=== PATIENT | female | born 2005 | race Hispanic/Latino ===

== ENCOUNTER 2024-11-24 12:04 | Emergency (ER) | payer SELFPAY ==
[~2024-11-24] VITALS: Ht 167.6 cm; Wt 90.3 kg
[2024-11-24 12:38] VITALS: PULSE 93; RESP 18; TEMP 97.2
[2024-11-24 13:16] LABS: BASOPHILS % 0.1 % (0.0-1.0); HEMATOCRIT 38.3 % (34.2-44.1); HEMOGLOBIN 13.5 g/dL (12.0-16.0); LYMPHOCYTES # (AUTO) 0.5 (1.0-3.2); LYMPHOCYTES % 5.3 % (18.0-39.1); MEAN CORPUSCULAR HEMOGLOBIN 31.8 pg (28-32); MEAN CORPUSCULAR HGB CONC 35.2 g/dL (31-35); MEAN CORPUSCULAR VOLUME 90.1 fL (81-99); MONOCYTES # (AUTO) 0.3 (0.2-0.8); MONOCYTES % 3.1 % (4.4-11.3); NEUTROPHILS # (AUTO) 7.7 (2.1-6.9); NEUTROPHILS % 91.1 % (38.7-80.0); PLATELET COUNT 206 x10e3/uL (140-360); RED BLOOD COUNT 4.25 x10e6/uL (3.6-5.1); RED CELL DISTRIBUTION WIDTH 11.7 % (11.7-14.4); WHITE BLOOD COUNT 8.46 x10e3/uL (4.8-10.8)
[2024-11-24 13:23] LABS: COLOR,URINE YELLOW (YELLOW)
[2024-11-24 13:24] LABS: BILIRUBIN,URINE NEGATIVE (NEGATIVE); CLARITY,URINE CLEAR (CLEAR); GLUCOSE, URINE NEGATIVE (NEGATIVE); KETONES,URINE NEGATIVE (NEGATIVE); LEUKOCYTE ESTERASE ,URINE TRACE (NEGATIVE); NITRITE,URINE NEGATIVE (NEGATIVE); PH,URINE 8.5 (5 - 7); PREGNANCY TEST, URINE NEGATIVE (NEGATIVE); PROTEIN,URINE DIPSTICK 1+ (NEGATIVE); URINE UROBILINOGEN 0.2 mg/dL (0.2 - 1)
[2024-11-24 13:33] LABS: BACTERIA,URINE MODERATE /HPF; RBC,URINE 0-5 /HPF (0-5)
[2024-11-24 13:34] LABS: EPITHELIAL CELLS,URINE MODERATE /LPF
[2024-11-24 13:36] LABS: ALBUMIN 3.7 g/dL (3.5-5.0); ALBUMIN/GLOBULIN RATIO 1.5 (0.8-2.0); ANION GAP 13.6 mmol/L (8-16); BILIRUBIN,TOTAL 0.6 mg/dL (0.2-1.2); CALCIUM 8.8 mg/dL (8.4-10.2); CREATININE, SERUM 0.74 mg/dL (0.57-1.11); POTASSIUM 3.6 mmol/L (3.5-5.1); TOTAL PROTEIN 6.2 g/dL (6.5-8.1)
[2024-11-24 13:54] LABS: AMPHETAMINES SCREEN,URINE NEGATIVE (NEGATIVE); BENZODIAZEPINES SCREEN,URINE NEGATIVE (NEGATIVE); CANNABINOIDS SCREEN,URINE NEGATIVE (NEGATIVE); COCAINE SCREEN,URINE NEGATIVE (NEGATIVE); METHADONE SCREEN, URINE NEGATIVE (NEGATIVE); OPIATES SCREEN,URINE POSITIVE (NEGATIVE); PHENCYCLIDINE SCREEN,URINE NEGATIVE (NEGATIVE)
[2024-11-24] MEDS: HALOPERIDOL LACTATE 5 MG/ML VIAL IV ONE (14:01)
[2024-11-24] MEDS: BELLADONNA ALK/PHENOBARBITAL 5 ML UDC PO STA (14:24)
[2024-11-24] MEDS: DIPHENHYDRAMINE HCL INJ 50 MG/ML VIAL IV STA (14:24)
[2024-11-24] MEDS: LIDOCAINE VISC 2% SOLN 15 ML UDC PO ONE (14:24)
[2024-11-24] MEDS: MAGNESIUM/ALUMINUM/SIMETHICONE 30 ML UDC PO ONE (14:24)
[2024-11-24] MEDS ORDERED: CARAFATE1 GM PO (15:32)
[2024-11-24 16:16] VITALS: BP 146/89; PULSE 78; RESP 18; TEMP 97; O2SAT 100
== END 2024-11-24 16:17 | disposition home or self-care (01) ==
LOC: ER 13:48
DX: R10.13 Epigastric pain (principal); K29.70 Gastritis, unspecified, without bleeding; R11.2 Nausea with vomiting, unspecified
CPT/HCPCS: 36415; 80053; 80307; 81001; 81025; 85025; 99283; J1200; J1630

== ENCOUNTER 2024-11-25 | Inpatient (IN) | payer SELFPAY ==
[~2024-11-25] VITALS: Ht 167.6 cm; Wt 90.3 kg
[2024-11-25] VITALS (9 sets, daily range): BP systolic 112–130; BP diastolic 60–91; PULSE 64–84; RESP 18–20; TEMP 98–99.7; O2SAT 98–100
[~2024-11-25] MED LIST: CARAFATE1 GM PO
[2024-11-25] MEDS: ONDANSETRON HCL INJ 2MG/ML 2ML 2 MG/ML VIAL IV STA (00:55)
[2024-11-25 01:02] LABS: BASOPHILS % 0.2 % (0.0-1.0); HEMATOCRIT 39.1 % (34.2-44.1); LYMPHOCYTES # (AUTO) 1.1 (1.0-3.2); LYMPHOCYTES % 11.4 % (18.0-39.1); MEAN CORPUSCULAR HGB CONC 35.8 g/dL (31-35); MEAN CORPUSCULAR VOLUME 89.3 fL (81-99); MONOCYTES # (AUTO) 0.8 (0.2-0.8); MONOCYTES % 8.3 % (4.4-11.3); NEUTROPHILS # (AUTO) 7.7 (2.1-6.9); NEUTROPHILS % 79.7 % (38.7-80.0); PLATELET COUNT 220 x10e3/uL (140-360); RED BLOOD COUNT 4.38 x10e6/uL (3.6-5.1); RED CELL DISTRIBUTION WIDTH 11.7 % (11.7-14.4); WHITE BLOOD COUNT 9.65 x10e3/uL (4.8-10.8)
[2024-11-25 01:43] LABS: ALBUMIN 4.1 g/dL (3.5-5.0); ALBUMIN/GLOBULIN RATIO 1.4 (0.8-2.0); ANION GAP 15.4 mmol/L (8-16); BILIRUBIN,TOTAL 0.8 mg/dL (0.2-1.2); CREATININE, SERUM 0.74 mg/dL (0.57-1.11); LIPASE 41 U/L (8-78); TOTAL PROTEIN 7.1 g/dL (6.5-8.1)
[2024-11-25 01:48] LABS: POTASSIUM 3.4 mmol/L (3.5-5.1)
[2024-11-25] MEDS ORDERED: HALOPERIDOL LACTATE 5 MG/ML VIAL ONE (01:51)
[2024-11-25] MEDS: HALOPERIDOL LACTATE 5 MG/ML VIAL IV ONE (01:57)
[2024-11-25] MEDS ORDERED: KETOROLAC TROMETHAMINE 30 MG/ML VIAL ONE (02:32)
[2024-11-25] MEDS: KETOROLAC TROMETHAMINE 30 MG/ML VIAL IV STA (02:48)
[2024-11-25] MEDS ORDERED: IOPAMIDOL 370 MG/ML 100 ML INFUS..BTL INJ ONE (03:12)
[2024-11-25] MEDS: ONDANSETRON HCL INJ 2MG/ML 2ML 2 MG/ML VIAL IV PRN (05:39)
[2024-11-25] MEDS: Morphine 4mg INJECTION 4 MG/ML INJ IV PRN (05:40)
[2024-11-25] MEDS: SODIUM CHLORIDE 0.9% 1000ML 1,000 ML IV SCH (05:42)
[2024-11-25] MEDS: HYDROMORPHONE 1MG/1ML INJ IV PRN ×2 (08:05→12:08)
[2024-11-25] MEDS: MAGNESIUM/ALUMINUM/SIMETHICONE 30 ML UDC PO SCH (17:19)
[2024-11-26] VITALS: BP 104/65; PULSE 62; RESP 20; TEMP 98.7; O2SAT 99
[2024-11-26 04:00] VITALS: BP 104/69; PULSE 77; RESP 20; TEMP 98; O2SAT 100
[2024-11-26 05:45] LABS: BASOPHILS % 0.4 % (0.0-1.0); EOSINOPHILS % 0.4 % (0.0-6.0); HEMATOCRIT 35.2 % (34.2-44.1); HEMOGLOBIN 12.2 g/dL (12.0-16.0); LYMPHOCYTES # (AUTO) 2.2 (1.0-3.2); LYMPHOCYTES % 25.4 % (18.0-39.1); MEAN CORPUSCULAR HEMOGLOBIN 31.8 pg (28-32); MEAN CORPUSCULAR HGB CONC 34.7 g/dL (31-35); MEAN CORPUSCULAR VOLUME 91.7 fL (81-99); MONOCYTES # (AUTO) 0.7 (0.2-0.8); MONOCYTES % 8.7 % (4.4-11.3); NEUTROPHILS # (AUTO) 5.6 (2.1-6.9); PLATELET COUNT 188 x10e3/uL (140-360); RED BLOOD COUNT 3.84 x10e6/uL (3.6-5.1); RED CELL DISTRIBUTION WIDTH 11.8 % (11.7-14.4); WHITE BLOOD COUNT 8.53 x10e3/uL (4.8-10.8)
[2024-11-26 06:15] LABS: ALBUMIN/GLOBULIN RATIO 1.3 (0.8-2.0); ANION GAP 11.3 mmol/L (8-16); BILIRUBIN,TOTAL 0.9 mg/dL (0.2-1.2); CALCIUM 7.9 mg/dL (8.4-10.2); CREATININE, SERUM 0.75 mg/dL (0.57-1.11); TOTAL PROTEIN 5.4 g/dL (6.5-8.1)
[2024-11-26 06:17] LABS: POTASSIUM 3.3 mmol/L (3.5-5.1)
[2024-11-26 08:00] VITALS: BP 109/60; PULSE 73; RESP 20; TEMP 98.4; O2SAT 100
[2024-11-26 08:43] VITALS: BP 109/60; PULSE 73; RESP 18; TEMP 98.4; O2SAT 99
[2024-11-26] MEDS: HYDROMORPHONE 1MG/1ML INJ IV PRN (12:19)
[2024-11-26 12:36] VITALS: BP 101/65; PULSE 88; RESP 18; TEMP 98.6; O2SAT 99
[2024-11-26] MEDS: MAGNESIUM HYDROXIDE 30 ML UDC PO ONE (15:17)
== END 2024-11-26 15:30 | disposition home or self-care (01) | DRG 392 ==
LOC: ER 01:55 → ERHOLD 04:42 → MED/SURG3 06:43 → OBSVTOIN 11-26 11:12
PROVIDERS: ADMIT Surgery; ATTEND Surgery
DX: K52.9 Noninfective gastroenteritis and colitis, unspecified (principal); K56.7 Ileus, unspecified; K27.9 Peptic ulcer, site unspecified, unspecified as acute or chronic, without hemorrhage or perforation; Z88.0 Allergy status to penicillin
CPT/HCPCS: 36415; 74019; 74177; 76705; 80053; 83690; 84702; 85025; 99284; G0378; J1171; J1630; J1885; J2270; J2405; J2470; J7030; Q9967